=== PATIENT | female | born 1960 | race Caucasian/White ===

== ENCOUNTER 2017-12-30 02:16 | Outpatient (CLI) | payer OTHER, SELFPAY ==
[2017-12-30 09:18] LABS: BUN 16 mg/dL (7-18); CREATININE 0.78 mg/dL (0.55-1.02); Calcium 9.4 mg/dL (8.5-10.1); Chloride 101 mmol/L (98-107); Cholesterol 196 mg/dL (50-200); Glucose 85 mg/dL (70-100); HDL Cholesterol 89 mg/dL (40-60); LDL CHOLESTEROL 96 mg/dL (<100); Potassium 4.4 mmol/L (3.5-5.1); Sodium 138 mmol/L (136-145); Triglyceride 58 mg/dL (30-150)
== END 2017-12-30 02:36 ==
PROVIDERS: PCP Nurse Practitioner Family; Visit Provider Nurse Practitioner Family
DX: Z13.220 Encounter for screening for lipoid disorders (principal); Z13.228 Encounter for screening for other metabolic disorders
CPT/HCPCS: 36415; 80048; 80061; 83721

== ENCOUNTER 2018-10-10 10:49 | Outpatient (CLI) | payer OTHER, SELFPAY ==
[2018-10-10 12:34] LABS: HGB 13.4 g/dL (12.0-15.5); Mean Corp. HGB Concentration 32.7 g/dL (32.0-36.0); Mean Corpuscular Hemoglobin 31.8 pg (27.0-33.0); Mean Corpuscular Volume 97.4 fL (80-95); Mean Platelet Volume 10.8 fL (8.0-11.0); Platelet Count 361 x1000/uL (130-400); RBC 4.21 m/cumm (4.00-5.20); White Blood Cell Count 4.95 k/cumm (4.4-10.8)
[2018-10-10 14:13] LABS: ALT 31 U/L (14-59); AST 21 U/L (15-37); Albumin 4.5 g/dL (3.4-5.0); Alkaline Phosphatase 71 U/L (46-116); Anion Gap 8.6 mmol/L (3-11); BUN 12 mg/dL (7-18); Bilirubin, Total 0.4 mg/dL (0.2-1.0); CO2 29.4 mmol/L (21.0-32.0); Calcium 9.3 mg/dL (8.5-10.1); Chloride 103 mmol/L (98-107); Glucose 84 mg/dL (70-100); Potassium 4.3 mmol/L (3.5-5.1); Sodium 141 mmol/L (136-145); Total Protein 7.7 g/dL (6.4-8.2); Vitamin B12 544 pg/mL (193-986)
[2018-10-11 11:31] LABS: TSH (W/Ref FT4) 1.95 uIU/mL (0.36-3.74)
== END 2018-10-10 11:09 ==
PROVIDERS: PCP Nurse Practitioner Family; Visit Provider Family Medicine
DX: R11.0 Nausea (principal); F32.9 Major depressive disorder, single episode, unspecified
CPT/HCPCS: 36415; 80053; 85027; 82607; 84443

== ENCOUNTER 2019-10-08 08:58 | Outpatient (CLI) | payer OTHER, SELFPAY ==
[2019-10-10 05:36] LABS: SARS-CoV-2 RNA Undetected (Undetected); SARS-CoV-2 Specimen Source Nasopharynx
== END 2019-10-08 09:18 ==
PROVIDERS: PCP Nurse Practitioner Family; Visit Provider Obstetrics & Gynecology Gynecology
DX: Z11.59 Encounter for screening for other viral diseases (principal)
CPT/HCPCS: U0003

== ENCOUNTER 2019-12-03 10:51 | Outpatient (CLI) | payer OTHER, SELFPAY ==
[2019-12-05 18:15] LABS: Patient Race White; SARS-CoV-2 RNA Undetected (Undetected); SARS-CoV-2 Specimen Source Nasopharynx
== END 2019-12-03 11:11 ==
PROVIDERS: PCP Nurse Practitioner Family; Visit Provider Nurse Practitioner Family
DX: Z11.59 Encounter for screening for other viral diseases (principal)
CPT/HCPCS: U0003

== ENCOUNTER 2019-12-25 10:40 | Outpatient (CLI) | payer OTHER, SELFPAY ==
[2019-12-29 14:26] LABS: Patient Race White; SARS-CoV-2 RNA Undetected (Undetected); SARS-CoV-2 Specimen Source Nasal
== END 2019-12-25 11:00 ==
PROVIDERS: PCP Nurse Practitioner Family; Visit Provider Nurse Practitioner Family
DX: Z11.59 Encounter for screening for other viral diseases (principal)
CPT/HCPCS: U0003

== ENCOUNTER 2020-01-07 03:17 | Outpatient (CLI) | payer OTHER, SELFPAY ==
[2020-01-08 18:06] LABS: Patient Race White; SARS-CoV-2 RNA Undetected (Undetected); SARS-CoV-2 Specimen Source Nasal
== END 2020-01-07 03:37 ==
PROVIDERS: PCP Nurse Practitioner Family; Visit Provider Nurse Practitioner Family
DX: Z11.59 Encounter for screening for other viral diseases (principal)
CPT/HCPCS: U0003

== ENCOUNTER 2020-02-13 03:04 | Outpatient (CLI) | payer OTHER, SELFPAY ==
[2020-02-13 14:29] LABS: HCT 39.2 % (36.0-46.0); MCH 32.5 pg (27.0-33.0); MCHC 33.2 % (32.0-36.0); MPV 10.5 fL (8.0-11.0); Platelet Count 292 10^3/uL (130-400); RDW 12.8 % (11.7-14.6); RDW-SD 46.2 fL; WBC 5.84 10^3/uL (4.4-10.8)
[2020-02-13 15:04] LABS: Hemoglobin A1C 5.5 % (<5.7)
[2020-02-13 15:18] LABS: BUN 18 mg/dL (7-18); CREATININE 0.97 mg/dL (0.55-1.02); Calcium 9.5 mg/dL (8.5-10.1); Calculated LDL 88 mg/dL (<100); Chloride 101 mmol/L (98-107); Cholesterol 204 mg/dL (<200); Estimated GFR 58.58 (mL/min/1.73m2); Ferritin 24 ng/mL (8-252); Glucose 110 mg/dL (74-106); HDL Cholesterol 97 mg/dL (40-60); Potassium 4.1 mmol/L (3.5-5.1); Sodium 137 mmol/L (136-145); TSH (W/Ref FT4) 3.14 uIU/mL (0.36-3.74); Triglyceride 99 mg/dL (<150)
== END 2020-02-13 03:24 ==
PROVIDERS: PCP Nurse Practitioner Family; Visit Provider Nurse Practitioner Family
DX: Z00.00 Encounter for general adult medical examination without abnormal findings (principal); R53.83 Other fatigue
CPT/HCPCS: 36415; 80048; 80061; 85027; 82728; 83036; 84443

== ENCOUNTER 2021-02-19 03:56 | Outpatient (CLI) | payer OTHER, SELFPAY ==
[2021-02-19 17:03] LABS: Anion Gap 7.1 mmol/L (3-11); BUN 18 mg/dL (7-18); CO2 32.9 mmol/L (21.0-32.0); CREATININE 0.8 mg/dL (0.55-1.02); Calcium 9.3 mg/dL (8.5-10.1); Chloride 100 mmol/L (98-107); Ferritin 51 ng/mL (8-252); Glucose 75 mg/dL (74-106); Potassium 4.2 mmol/L (3.5-5.1); Sodium 140 mmol/L (136-145)
== END 2021-02-19 03:57 | disposition home or self-care (01) ==
LOC: LBO 04:01
PROVIDERS: PCP Nurse Practitioner Family; Visit Provider Nurse Practitioner Family
DX: Z00.00 Encounter for general adult medical examination without abnormal findings (principal)
CPT/HCPCS: 36415; 80048; 82728

== ENCOUNTER 2021-10-09 08:22 | Day surgery (SDC) | payer OTHER, SELFPAY ==
--- NOTE | 2021-10-08 16:19 | W.COLOREPORT ---
Colonoscopy Report Pre-op diagnosis general: Colon cancer screening Anesthesia Type: General:No Airway Disposition: same day Prep: Miralax/Dulcolax Retraction Time: 9 Procedure Description: After informed consent was obtained the patient was taken to the procedure room and placed in a left decubitous position. Monitors were applied and a time out was done. The patients name, date of , procedure, allergies to medications and metal in their body was reviewed. The patient was then sedated. Once sedated and comfortable a rectal exam was done. External exam was normal. Internal exam revealed a normal sphincter tone and no palpable masses. The scope was then introduced and retrofelexed. No internal hemorrhoids were identified. she does have a few internal hemorrhoidal tags. The scope was then advanced to the cecum w/out difficulty. The TI and appendiceal orifice were identified. The prep was BB PS 2 in all segments for total of 6 . The scope was then slowly retracted over 9 minutes back into the rectum. She has moderate diverticular disease in the sigmoid colon. There is no signs of bleeding or infection. She does have a few small scattered diverticuli that do carry all the way over to the right colon. The Mucosa is pink and healthy with a normal vascular pattern. she has a small flat 5 mm polyp in the rectum. This is removed with a cold biting forceps. All specimen is retrieved and no bleeding is noted. the patient was woken up and taken back to Same day surgery in stable condition. The patient tolerated the procedure well and there were no immediate complications. Follow up: The patient should follow up in 7-10 years unless they develop changes in bowel habits or other new gastrointestinal complaints.
--- NOTE | 2021-10-08 16:20 | PDOC.DSDIS_ITS ---
Discharge Plan Disposition Patient Disposition: HOME Condition: Good Discharge Details Reason For Visit: Colonoscopy Attending Provider: Treasure Lion Primary Care Provider: Tatiana Tenorio Home Meds and New Rx's Prescriptions: No Action polyethylene glycol 3350 17 gram/dose powder 238 g PO ONCE Qty: 238 0RF Rx Instructions: take per colonoscopy instructions bisacodyl [Dulcolax (bisacodyl)] 5 mg tablet,delayed release (DR/EC) 5 mg PO ONCE Qty: 4 0RF Rx Instructions: take per colonoscopy instructions cyanocobalamin (vitamin B-12) [Vitamin B-12] 1,000 mcg tablet 1,000 mcg PO DAILY cholecalciferol (vitamin D3) 1,000 UNIT capsule 1,000 unit PO DAILY sertraline 100 mg tablet 100 mg PO DAILY Qty: 90 4RF Rx Instructions: Take 1 tab daily in addition to the 25mg tablet sertraline 25 mg tablet 25 mg PO DAILY Qty: 90 4RF Rx Instructions: Take 1 tab in addition to the 100mg tablet Discharge Instructions Additional Instructions: DSU Colonoscopy Post- Op Instructions Instructions for Everyone who is given Anesthesia: For your safety, please do the following for the next twenty-four (24) hours: *Do Not operate a motor vehicle (car, truck, motorcycle, etc.) *Do Not drink alcoholic beverages or use any recreational drugs for the first 24 hours or while taking pain medications. The medications in your body may have a reaction that can be dangerous. *Do Not make any important decisions or sign any important papers. Findings: diverticula- moderate. Make sure you are moving your bowels on a regular basis and not straining to go to the bathroom There was a small polyp in the rectum. Follow up: My office will send a letter in 2 to 3 weeks time detailing as to what type of polyp it was and when we want you to repeat your colonoscopy, most likely 7 to 10 years time. 1. No lifting over 20 pounds or strenuous activity for the first 24 hours after your procedure. After 24 hours there are no restrictions on your activity but you may feel fatigued for a few days. 2. After you arrive home you may have a light meal and return to your normal diet as you can tolerate it without feeling sick to your stomach. 3. You may have a bloated, gaseous feeling in your belly (abdomen) after a colonoscopy. Passing gas and belching will help. Walking or lying down on your left side with your knees flexed may relieve the discomfort. Call the office at [phone] (Office) or [phone] (Hospital) right away if you notice any of the following: a.Vomiting of blood or ?coffee ground stools?. b.Rectal bleeding 1Tbsp, blood clots or continuous bleeding. c.Severe belly (abdominal) pain. d.A hard distended belly (abdomen) and an inability to pass gas. 4. Please don?t expect to have a normal BM (bowel movement) for 2-3 days after your procedure. 5. If there are questions regarding the findings of your procedure, please contact your doctor 6. If you are unable to contact your doctor with a problem, contact the hospital at [phone]. 7. Continue all your regular medications unless directed otherwise. I understand the above instructions and have no questions. Signature of Patient or Adult Escort Name of Responsible Adult Escort Signature of Nurse Date/Time Activity:: See above Diet:: See above Discharge Orders Discharge Orders: Discharge Order (Routine); Ordered 10/08/21 Ordered By: Treasure Lion
[2021-10-09 08:34] VITALS: BP 164/80; PULSE 54; RESP 19; TEMP 36.5; O2SAT 100
[2021-10-09] MEDS: Lactated Ringers 1,000 ML 80 ML IV (08:54)
--- NOTE | 2021-10-09 09:01 | ANES.PREOP_ITS ---
General Info Date of Service Date Performed: 10/09/21 Height: 5 ft 6 in Weight: 64.6 kg Body Mass Index (BMI): 22.9 Surgical Procedure: Operation Date: 10/09/21 09:05 Proposed Procedure Side Surgeon janet Lion, Meds Allergies and Home Medications Allergies Allergy/AdvReac Type Severity Reaction Status Date / Time No Known Drug Allergies Allergy Verified 10/09/21 08:42 Home Medication Medication Instructions Recorded cholecalciferol (vitamin D3) 25 1,000 unit PO DAILY 06/28/12 mcg (1,000 unit) capsule cyanocobalamin (vitamin B-12) 1,000 mcg PO DAILY 10/06/18 1,000 mcg tablet (Vitamin B-12) sertraline 100 mg tablet 100 mg PO DAILY #90 tabs 08/11/21 sertraline 25 mg tablet 25 mg PO DAILY #90 tabs 08/11/21 bisacodyl 5 mg tablet,delayed 5 mg PO ONCE colonscopy bowel prep 10/01/21 release (Dulcolax (bisacodyl)) #4 tabs polyethylene glycol 3350 17 238 g PO ONCE colonoscopy prep 10/01/21 gram/dose oral powder #238 grams Current Visit Medications: Current Medications Generic Name Dose Route Start Last Admin Trade Name Freq PRN Reason Stop Dose Admin Hyoscyamine Sulfate 0.125 mg 10/08/21 16:19 Hyoscyamine 0.125 Mg Sl/Oral/Chew SL DIRECTED PRN Ringer's Solution 1,000 mls @ 80 mls/hr 10/09/21 06:00 10/09/21 08:54 IV 11/07/21 23:59 80 mls/hr INFUSION HOLLY Administration IV Miscellaneous Supplies 1 each 10/09/21 06:00 Iv Access IV 11/07/21 23:59 DIRECTED HOLLY Ondansetron HCl 4 mg 10/08/21 16:19 Ondansetron 4 Mg/2 Ml Vial IVP Q4H PRN PRN Nausea / Vomiting Sodium Chloride 0 ml 10/09/21 06:00 Normal Saline Flush 10 Ml Syr IV 11/07/21 23:59 PRN PRN Sodium Chloride 0 ml 10/09/21 06:00 Normal Saline 10 Ml Vial IJ 11/07/21 23:59 DIRECTED PRN Sterile Water 0 ml 10/09/21 06:00 Water,Injection,Sterile 10 Ml Vial IJ 11/07/21 23:59 DIRECTED PRN PFS Active Problems Active Problems: Problem Status Onset Code Screening for colon cancer Z12.11 Medical History Medical History Depressive disorder Diverticulosis of colon without diverticulitis Sigmoid, descending, and ascending colon 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 2013 recurrence treated with mastectomy. Followed by [facility] History of left breast cancer DCIS in 2002 (ER positive) and 2013 (ER and MI positive) s/p lumpectomy, radi ation and tamoxifen (completed in 02/2008). 2013 recurrence treated with mastectomy. Followed by [facility] Surgical History Surgical History H/O total mastectomy of left breast (05/11/13) For recurrent DCIS S/P bilateral salpingo-oophorectomy (09/07/13) S/P colonoscopy (03/16/10) S/P excision of lipoma (~2006) Status post left breast lumpectomy (~2002) Status post left breast reconstruction (05/11/13) Revised 05/29/14 Tobacco Smoking/Tobacco Use Status: Never Passive smoking exposure: No Second hand exposure: No Alcohol Alcohol Intake: current Alcohol intake frequency: holidays/special occasions only Substance Use Substance use: Never Substance use type: former substance user and marijuana Prental History History 0 Para Hx # Term Pregnancies Multiple births Hx # Pregnancies Ectopic pregnancies AB induced Hx Number of Living Children AB spontaneous Vital Signs and Lab Results Vital Signs Most Recent Vital Signs in EMR: Most Recent Vital Signs Temp Pulse Resp BP Pulse Ox 36.5 C 54 L 19 164/80 H 100 10/09/21 08:34 10/09/21 08:34 10/09/21 08:34 10/09/21 08:34 10/09/21 08:34 Lab Results Blood Type / Crossmatch: No Data to Display Complete Blood Count: No Data to Display Complete Metabolic Panel: No Data to Display Liver Function Panel: No Data to Display Coagulation Panel: No Data to Display Cardiac Panel: No Data to Display Arterial Blood Gas: No Data to Display Venous Blood Gas: No Data to Display Pancreas Panel: No Data to Display Thyroid Panel: No Data to Display Infectious Disease: No Data to Display Blood Cultures: No Data to Display Toxicology Panel: No Data to Display Anesthesia Assessment and Plan Anesthesia History Personal History: No History of Anesthesia Complications Family History: No Family History of Anesthesia Complications Exercise Tolerance Exercise Tolerance: Metabolic Equivalents>4 Pertinent Negatives Pertinent Negatives: No Symptoms of GERD, No Major Cardiovascular Symptoms or Complaints, No Major Pulmonary Symptoms or Complaints and No History of CVA/TIA Cardiac & Pulmonary Exam Cardiac Exam: Normal S1/S2 Heart Sounds Pulmonary Exam: Clear Bilateral Breath Sounds Implantable Cardiac Device Does patient have a Pacemaker or an ICD?: No Airway Exam Known Difficult Airway: No Mallampati Class: 1 Mouth Opening: Normal (> 3cm) Thyromental Distance: Greater than 3 cm Neck Range of Motion: Full ROM Neck Circumference: Normal Teeth Condition: Normal Dentition Airway Comments: Back bottom right crown ASA Classification ASA Score: ASA 2 Emergency Case?: No NPO Status NPO Status: NPO Clears >2 hours, Solids >8 hours Anesthesia Plan Resuscitation Status: Full Code Anesthesia Technique: General Anesthesia Airway Planned: Natural Airway Monitors Used: Standard Monitors
[2021-10-09 09:03] VITALS: BMI 22.9
--- NOTE | 2021-10-09 09:31 | BOWEL_PTH ---
PATIENT: Iris Worthington LOC: [facility] U#:[id number] AGE/SX: 61/F ROOM: RE10/09/[address]: Treasure Lion : 1960 BED: DIS: 10/09/2021 SPEC #: [id number] RECD: 10/09/21 11:22 STATUS: ZELDA RE #: [id number] LATANYA: 10/09/21 09:[address]: Treasure Lion DEPT: Surgical Specimen RECD BY: Ermelinda Harper ENTERED: 10/09/21 11:23 SP TYPE: Bowel OTHR DR: Tatiana Tenorio, RIVERA Tissues: 1 - BIOPSY BOWEL Procedures: GROSS AND MICRO LEVEL 4 Comments: [id number]
[2021-10-09 10:05] VITALS: BP 111/72; PULSE 55; RESP 17; TEMP 36.5; O2SAT 98
--- NOTE | 2021-10-09 10:23 | W.ANESPOSTOP ---
Postoperative Evaluation Date, Time and Location Date Performed: 10/09/21 Time Performed: 10:23 Patient Location: Day Surgery Unit Vital Signs Most Recent Imported Vital Signs: Most Recent Vital Signs Temp Pulse Resp BP Pulse Ox 36.5 C 55 L 17 111/72 98 10/09/21 10:05 10/09/21 10:05 10/09/21 10:05 10/09/21 10:05 10/09/21 10:05 Pain Score Most Recent Pain Score: Most Recent Pain Score Pain Level 0 10/09/21 10:05 Assessment Mental Status: Awake (Alert & Oriented to Patient Baseline) Airway and Respiratory Function: Patent airway with normal (patient baseline) respiratory exam Cardiovascular Function: Hemodynamically Stable Hydration Status: Adequately Hydrated Nausea & Vomiting: No Nausea or Vomiting Pain: Pt. Denies Any Pain Peripheral Nerve Block: Patient did not receive a nerve block
[2021-10-09 10:26] VITALS: BP 121/73; PULSE 52; RESP 18; TEMP 36.6; O2SAT 99
== END 2021-10-09 11:12 | disposition home or self-care (01) ==
PROVIDERS: PCP Nurse Practitioner Family; Visit Provider Surgery
PROC: 0DJD8ZZ Inspection of Lower Intestinal Tract, Via Natural or Artificial Opening Endoscopic (ICD-10-PCS; CPT 45378; principal; 2021-10-09 09:00)
DX: Z12.11 Encounter for screening for malignant neoplasm of colon (principal); K62.1 Rectal polyp; K57.30 Diverticulosis of large intestine without perforation or abscess without bleeding; K62.89 Other specified diseases of anus and rectum
CPT/HCPCS: 45380; 88305; J2001; J2704

== ENCOUNTER 2022-04-09 12:19 | Outpatient (REF) | payer OTHER, SELFPAY ==
--- NOTE | 2022-04-09 11:00 | PAPFT_PTH ---
PATIENT: Iris Worthington LOC: [facility] U#:[id number] AGE/SX: 61/F ROOM: RE04/09/[address]: RIVERA Gibson : 1960 BED: DIS: 04/09/2022 SPEC #: [id number] RECD: 04/12/22 17:48 STATUS: ZELDA LEMUS #: [id number] LATANYA: 04/09/22 11:[address]: Tatiana Tenorio DEPT: [facility] Cytology RECD BY: Ermelinda Harper Tissues: 1 - CX/ENDOCX FOR PAP SMEARS Procedures: PAP THIN PREP/[facility] Screening HPV DNA PROBE Comments: [id number]
== END 2022-04-09 12:20 | disposition home or self-care (01) ==
LOC: LBN 12:19
PROVIDERS: PCP Nurse Practitioner Family; Visit Provider Nurse Practitioner Family
DX: Z12.4 Encounter for screening for malignant neoplasm of cervix (principal); Z11.51 Encounter for screening for human papillomavirus (HPV)
CPT/HCPCS: 88142; 87624

== ENCOUNTER 2022-04-15 03:19 | Outpatient (CLI) | payer OTHER, SELFPAY ==
[2022-04-15 16:16] LABS: HCT 36.9 % (36.0-46.0); HGB 12.3 g/dL (11.2-15.7); MCH 31.9 pg (27.0-33.0); MCHC 33.3 % (32.0-36.0); MCV 96 fL (80-95); MPV 10.1 fL (8.0-11.0); Platelet Count 355 10^3/uL (130-400); RBC 3.86 10^6/uL (3.93-5.22); RDW 12.7 % (11.7-14.6); RDW-SD 45.2 fL; WBC 5.42 10^3/uL (4.4-10.8)
[2022-04-15 16:53] LABS: Anion Gap 7.8 mmol/L (3-11); BUN 20 mg/dL (7-18); CO2 31.2 mmol/L (21.0-32.0); CREATININE 0.8 mg/dL (0.55-1.02); Calcium 9.7 mg/dL (8.5-10.1); Calculated LDL 78 mg/dL (<100); Chloride 103 mmol/L (98-107); Cholesterol 163 mg/dL (<200); Estimated GFR 83.26 (mL/min/1.73m2); Ferritin 78 ng/mL (8-252); Glucose 83 mg/dL (74-106); HDL Cholesterol 71 mg/dL (40-60); Potassium 4.1 mmol/L (3.5-5.1); Sodium 142 mmol/L (136-145); Triglyceride 73 mg/dL (<150)
== END 2022-04-15 03:20 | disposition home or self-care (01) ==
LOC: LBO 03:19
PROVIDERS: PCP Nurse Practitioner Family; Visit Provider Nurse Practitioner Family
DX: E61.1 Iron deficiency (principal); F32.89 Other specified depressive episodes; Z13.220 Encounter for screening for lipoid disorders
CPT/HCPCS: 36415; 80048; 80061; 85027; 82728

== ENCOUNTER 2022-05-19 01:40 | Outpatient (CLI) | payer OTHER, SELFPAY ==
--- NOTE | 2022-05-19 | DI.CT_ITS ---
Exam(s) CT NECK W EXAM: CT NECK W CLINICAL HISTORY: NECK MASS 3.7 CM ON US RT NECK,R22.1. TECHNIQUE: Imaging Protocol: Axial computed tomography images with coronal and sagittal reformatted images were created and reviewed CONTRAST MATERIAL: Intravenous: Omnipaque 350 Contrast volume:100 ml contrast COMPARISON: US US SOFT TISSUE HEAD OR NECK from 05/12/2022 FINDINGS: Parotids/submandibular/thyroid gland: Normal. Lymphadenopathy: There are scattered lymph nodes seen along the level one to level three all measuri ng less than 8 mm in short axis diameter which are physiologic in nature. Carotids/Jugular: No significant stenosis or dissection.. Soft tissues: The floor the mouth is unremarkable. The epiglottis and vocal cords are within normal limits. Contrast exam action was performed through the right arm which creates artifact over the area of conc yves in the right supraclavicular region. There is a simple appearing cyst measuring 3.5 cm in this l ocation. It lies directly lateral to the proximal jugular vein and superior to the subclavian vein. No solid masses or adenopathy. Lungs: Images through both lung apices are unremarkable. Bones: Minimal degenerative changes of the cervical spine. Visualized portions of the brain and orbits: Unremarkable. Sinuses and mastoids: Minimal mucous retention left sphenoid sinus. IMPRESSION: 3.5 centimeter simple appearing cyst in the right supraclavicular region. No additional abnormalitie s. RADIATION DOSE DELIVERED: 303.48mGy.cm Total DLP DATA REPOSITORY: All CT scans at this facility are submitted to the National Radiology Data Registry (NRDR) Dose Index Registry (DIR) with the [employer] (A[employer]). RADIATION OPTIMIZATION: All CT scans at this facility use at least one of these dose optimization te chniques: automated exposure control; mA and/or kV adjustment per patient size (includes targeted exa ms where dose is matched to clinical indication); or iterative reconstruction.
[2022-05-19 09:58] LABS: CREATININE 0.8 mg/dL (0.55-1.02); Estimated GFR 83.26 (mL/min/1.73m2)
[2022-05-19] MEDS: Normal Saline - Diluent 50 ML VIAL IJ (10:37)
[2022-05-19] MEDS: Omnipaque 350 MG/ML 500 ML BTL-Imaging package IJ (10:38)
== END 2022-05-19 02:00 ==
LOC: DI 01:43
PROVIDERS: PCP Nurse Practitioner Family; Visit Provider Nurse Practitioner Adult Health
DX: R22.1 Localized swelling, mass and lump, neck (principal); Z01.812 Encounter for preprocedural laboratory examination
CPT/HCPCS: 70491; 82565

== ENCOUNTER 2022-09-02 01:31 | Outpatient (CLI) | payer OTHER, SELFPAY ==
--- NOTE | 2022-09-02 07:00 | DI.DEXA_ITS ---
Exam(s) XR DEXA BONE DENSITY W/WO SETH EXAM: XR DEXA BONE DENSITY W/WO SETH CLINICAL HISTORY: screening for osteoporosis in postmenopausal woman,z78.0 TECHNIQUE: COMPARISON: No exams were available for comparison FINDINGS: Lateral Spine Image: Unremarkable. No compression deformities identified. Left hip: Total T-Score: -2.4 Total Z-Score: -1.3. T- and Z-scores: Findings are consistent with osteopenia. There is osteoporosis in the femoral neck with a T-score of -3.0. Lumbar Spine: Total T-Score: -2.4 Total Z-Score: -0.7 T- and Z-scores: Findings are consistent with osteopenia. There is osteoporosis in the L4 vertebral body with a T-score -2.8. IMPRESSION: Osteoporosis in the left hip and lumbar spine as described above.
== END 2022-09-02 01:51 ==
LOC: DI 01:32
PROVIDERS: PCP Nurse Practitioner Family; Visit Provider Nurse Practitioner Family
DX: Z78.0 Asymptomatic menopausal state (principal); Z13.820 Encounter for screening for osteoporosis; M81.0 Age-related osteoporosis without current pathological fracture
CPT/HCPCS: 77080

== ENCOUNTER 2023-04-20 04:53 | Outpatient (CLI) | payer OTHER, SELFPAY ==
[2023-04-20 16:28] LABS: Anion Gap 9.6 mmol/L (3-11); BUN 22 mg/dL (7-18); CO2 29.4 mmol/L (21.0-32.0); CREATININE 0.9 mg/dL (0.55-1.02); Calcium 9.3 mg/dL (8.5-10.1); Chloride 102 mmol/L (98-107); Estimated GFR 71.83 (mL/min/1.73m2); Ferritin 100 ng/mL (8-252); Glucose 102 mg/dL (74-106); Potassium 3.9 mmol/L (3.5-5.1); Sodium 141 mmol/L (136-145); Vitamin B12 982 pg/mL (193-986)
[2023-04-20 16:29] LABS: Vitamin D 25 Total 39.6 ng/mL (30-100)
[2023-04-21 10:26] LABS: Hepatitis C Ab w Rflx HCV PCR Reactive (Negative)
[2023-04-21 13:24] LABS: HCV RNA Qualitative Undetected (Undetected)
== END 2023-04-20 04:54 | disposition home or self-care (01) ==
LOC: LBO 04:53
PROVIDERS: PCP Nurse Practitioner Family; Visit Provider Nurse Practitioner Family
DX: Z00.00 Encounter for general adult medical examination without abnormal findings (principal)
CPT/HCPCS: 36415; 80048; 82306; 86803; 87522; 82607; 82728

== ENCOUNTER 2024-07-18 11:52 | Outpatient (REF) | payer MEDICARE, OTHER, SELFPAY ==
--- NOTE | 2024-07-18 09:42 | PAPNONF_PTH ---
PATIENT: Iris Worthington LOC: [facility] U#:[id number] AGE/SX: 64/F ROOM: RE07/18/[address]: Mike Comer MD : 1960 BED: DIS: 07/18/2024 SPEC #: [id number] RECD: 07/18/24 17:14 STATUS: ZELDA RERossy #: [id number] LATANYA: 07/18/24 09:[address]: Mike Comer [facility] Cytology RECD BY: Ermelinda Harper ENTERED: 07/18/24 17:17 SP TYPE: MARIA ELENA ARIAS DR: Tatiana Tenorio, RIVERA Tissues: 1 - BODY FLUID CYTO-FINE NEEDLE ASPIRATE-[facility] Procedures: BODY FLUID CYTO-FINE NEEDLE ASPIRATE-[facility] Comments: [id number] (REFRIGERATED)
== END 2024-07-18 11:53 | disposition home or self-care (01) ==
LOC: LBN 11:52
PROVIDERS: PCP Nurse Practitioner Family; Visit Provider Otolaryngology
DX: R22.1 Localized swelling, mass and lump, neck (principal)
CPT/HCPCS: 88104

== ENCOUNTER → 2024-12-27 02:18 | Outpatient (CLI) | payer MEDICARE, OTHER, SELFPAY ==
--- NOTE | 2024-12-27 08:45 | DI.DEXA_ITS ---
Exam(s) XR DEXA BONE DENSITY W/WO SETH EXAM: XR DEXA BONE DENSITY W/WO SETH CLINICAL HISTORY: M81.0 Age-related osteoporosis w/o current pathological FX, fosamax x 2 yrs TECHNIQUE: [employer] C densitometer analysis of left hip, lumbar spine and right forearm. Lateral survey image of the thoracic and lumbar spine. COMPARISON: CR XR DEXA BONE DENSITY W/WO SETH from 09/02/2022 FINDINGS: Lateral view of the thoracic and lumbar spine shows no evidence of compression fractures. Bone mineral density measurements of the lumbar spine correspond to a total T- score of -1.7, in the osteopenic range. This represents a 9.6 percent increase from 2022. Bone mineral density measurements of the left hip correspond to a total T-score of -1.9. This represents a 10.4 percent increase from 2022. The femoral neck T-score is -2.6, in the osteoporotic range. Theright forearm bone mineral density measurements correspond to a T-score of the distal 3rd of -2.7, in the osteoporotic range. This represents a 3.6 percent decrease from the prior exam. IMPRESSION: Osteoporosis of the hip and forearm. Osteopenia of the lumbar spine
== END ==
LOC: DI 02:18
PROVIDERS: PCP Nurse Practitioner Family; Visit Provider Nurse Practitioner Family
DX: M81.0 Age-related osteoporosis without current pathological fracture (principal)
CPT/HCPCS: 77080

== ENCOUNTER 2025-01-31 13:57 | Outpatient (CLI) | payer MEDICARE, OTHER, SELFPAY ==
--- NOTE | 2025-01-31 15:00 | RT.EKG_ITS ---
APPROVED REPORT Exam: Resting ECG Reason for Exam: pre-op Patient Location: O HR:57 bpm ECG Measurements Heart Rate 57 AXIS PA 166 P 66 QRSd 89 QRS 33 QT 439 T 50 QTc 428 Conclusion Sinus rhythm...normal P axis, V-rate 50- 99 Consider left ventricular hypertrophy...(S V1/V2+R V5/V6) >3.25mV Otherwise normal ECG
== END 2025-01-31 13:58 | disposition home or self-care (01) ==
PROVIDERS: PCP Nurse Practitioner Family; Visit Provider Nurse Practitioner Family
DX: Z01.818 Encounter for other preprocedural examination (principal)
CPT/HCPCS: 93010

== ENCOUNTER 2025-01-31 15:01 | Outpatient (CLI) | payer MEDICARE, OTHER, SELFPAY ==
[2025-01-31 17:03] LABS: Vitamin D 25 Total 31 ng/mL (30-100)
[2025-01-31 17:09] LABS: ALT 22 U/L (10-49); AST 25 U/L (<34); Albumin 4.7 g/dL (3.2-5.0); Alkaline Phosphatase 67 U/L (46-116); Anion Gap 7.9 mmol/L (3-11); BUN 22 mg/dL (9-23); Bilirubin, Total 0.5 mg/dL (0.2-1.2); CO2 29.1 mmol/L (20.0-31.0); Calcium 9.4 mg/dL (8.3-10.6); Chloride 105 mmol/L (98-107); Cholesterol 173 mg/dL (<200); Glucose 84 mg/dL (74-106); HDL Cholesterol 72 mg/dL (>or=50); Potassium 3.9 mmol/L (3.5-5.1); Sodium 142 mmol/L (136-145); Total Protein 7.5 g/dL (5.7-8.2)
[2025-01-31 17:40] LABS: Abs Immature Grans 0.01 10^3/uL (0.0-0.06); HCT 39.2 % (36.0-46.0); HGB 12.8 g/dL (11.2-15.7); Immature Grans % 0.2 %; MCH 31.6 pg (27.0-33.0); MCHC 32.7 % (32.0-36.0); MCV 97 fL (80-95); MPV 10.5 fL (8.0-11.0); Platelet Count 328 10^3/uL (130-400); RBC 4.05 10^6/uL (3.93-5.22); RDW 12.4 % (11.7-14.6); RDW-SD 44.3 fL; WBC 5.66 10^3/uL (4.4-10.8)
[2025-02-01 09:46] LABS: HIV-1/2 Ag & Ab Screen Negative (Negative)
[2025-02-01 09:53] LABS: HBs Antibody, Quant 58.7 mIU/mL (See Note); Hepatitis B Surface Antigen Negative (Negative)
== END 2025-01-31 15:02 | disposition home or self-care (01) ==
LOC: LOS 15:01
PROVIDERS: PCP Nurse Practitioner Family; Visit Provider Nurse Practitioner Family
DX: Z01.818 Encounter for other preprocedural examination (principal); Z11.59 Encounter for screening for other viral diseases; Z11.4 Encounter for screening for human immunodeficiency virus [HIV]; E78.5 Hyperlipidemia, unspecified; M81.0 Age-related osteoporosis without current pathological fracture
CPT/HCPCS: 36415; 80053; 80061; 82306; 86704; 86706; 87340; 87389; 85025